=== PATIENT | female | born 2000 | race Hispanic/Latino ===

== ENCOUNTER 2021-03-04 01:23 | Emergency (ER) | payer MEDICAID, OTHER ==
[~2021-03-04] VITALS: Ht 160 cm; Wt 85.3 kg
[2021-03-04] MEDS ORDERED: KETOROLAC 30MG VIAL (30MG/ML) IM ONE (02:00)
[2021-03-04] MEDS ORDERED: HYDROCODONE/ACETAMINOPHEN 5/325 MG TAB PO ONE (02:00)
[2021-03-04] MEDS ORDERED: KETOROLAC 30MG VIAL (30MG/ML) ONE (02:05)
[2021-03-04] MEDS ORDERED: HYDROCODONE/ACETAMINOPHEN 5/325 MG TAB ONE (02:06)
[2021-03-04] MEDS ORDERED: HYDROMORPHONE 0.5 MG SYG (0.5MG/0.5ML) IM ONE (03:30)
[2021-03-04 03:57] VITALS: BP 119/62
[2021-03-04] MEDS ORDERED: NAPR500T6 PO (05:03)
[2021-03-04] MEDS ORDERED: ACET1TAB25 PO (05:03)
== END 2021-03-04 05:30 | disposition home or self-care (01) ==
LOC: EDH 01:23
DX: S82.862A Displaced Maisonneuve's fracture of left leg, initial encounter for closed fracture (principal); Z79.1 Long term (current) use of non-steroidal anti-inflammatories (NSAID); Z90.49 Acquired absence of other specified parts of digestive tract; X58.XXXA Exposure to other specified factors, initial encounter; Y93.89 Activity, other specified; Y92.89 Other specified places as the place of occurrence of the external cause; Y99.8 Other external cause status
CPT/HCPCS: 29505; 73590; 73610; 96372 ×2; 99284; J1170; J1885